=== PATIENT | female | born 1965 | race African-American/Black ===

== ENCOUNTER 2017-05-22 14:34 | Emergency (ER) | payer OTHER ==
[~2017-05-22] VITALS: Ht 162.6 cm; Wt 90.7 kg
[2017-05-22 14:43] VITALS: BP_SYST 150
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
--- NOTE | 2017-05-22 15:01 | NUR ---
Placed in hallway bed 1
--- NOTE | 2017-05-22 15:11 | NUR ---
ER Dr. Mahmood at bedside examining patient.
--- NOTE | 2017-05-22 16:48 | NUR ---
Pt resting in hospital bed. No acute distress. Vital signs within normal range. Will continue to monitor.
[2017-05-22 17:03] VITALS: BP_SYST 134
--- NOTE | 2017-05-22 17:03 | NUR ---
Patient given written and verbal discharge instructions and verbalizes understanding. ER MD discussed with patient the results and treatment provided. Patient in stable condition. ID arm band removed. Rx of Tramadol given. Patient educated on pain management and to follow up with PMD. Pain Scale 0. Opportunity for questions provided and answered.
== END 2017-05-22 17:03 | disposition home or self-care (01) ==
LOC: SED 14:34
DX: S83.92XA Sprain of unspecified site of left knee, initial encounter (principal); V89.2XXA Person injured in unspecified motor-vehicle accident, traffic, initial encounter; Y93.89 Activity, other specified; Y92.410 Unspecified street and highway as the place of occurrence of the external cause; Y99.8 Other external cause status
CPT/HCPCS: 73564; 99284